=== PATIENT | male | born 1965 | race African-American/Black ===

== ENCOUNTER 2017-07-08 22:44 | Emergency (ER) | payer OTHER ==
[2017-07-08 23:36] VITALS: BMI 25.8
--- NOTE | 2017-07-09 | PDOC ---
History of Present Illness - General History Source: Patient Exam Limitations: No Limitations - History of Present Illness Initial Comments: 07/09/17 02:26 The patient is a 51 year old male with a significant past medical history of bipolar d/o, asthma, substance abuse (per EMR) who presents via EMS s/p accident at home. Patient was home when the ceiling fell on him. Patient comes in complaining of lower back pain. Denies any other injury, denies headache, neck pain, focal weakness or numbness, CP, SOB, abd pain, visual problems, N/V/D , LE edema. Denies any drug, etoh, or tobacco use today. : Maria A [phone] <Roni Greer - Last Filed: 07/09/17 05:07> <Juanita Alfaro - Last Filed: 07/09/17 07:26> - General Chief Complaint: Back Pain Stated Complaint: HEAD & BACK PAIN/INJURY Time Seen by Provider: 07/08/17 23:47 Past History <Roni Greer - Last Filed: 07/09/17 05:07> - Suicide/Smoking/Psychosocial Hx Smoking History: Unknown if ever smoked Have you smoked in the past 12 months: No Information on smoking cessation initiated: No Hx Alcohol Use: No Drug/Substance Use Hx: No <Juanita Alfaro - Last Filed: 07/09/17 07:26> - Past Medical History Allergies/Adverse Reactions: Allergies Allergy/AdvReac Type Severity Reaction Status Date / Time No Known Allergies Allergy Verified 07/08/17 23:50 Home Medications: Ambulatory Orders Celexa - 25 mg PO DAILY 07/08/17 Quetiapine Fumarate [Seroquel -] 200 mg PO BID 07/08/17 Zolpidem Tartrate [Ambien] 5 mg PO PRN 07/08/17 Review of Systems - Review of Systems Able to Perform ROS?: Yes Comments:: 07/09/17 05:07 GENERAL/CONSTITUTIONAL: No fever or chills. No weakness. HEAD, EYES, EARS, NOSE AND THROAT: No change in vision. No ear pain or discharge. No sore throat. CARDIOVASCULAR: No chest pain or shortness of breath. RESPIRATORY: No cough, wheezing, or hemoptysis. GASTROINTESTINAL: No nausea, vomiting, diarrhea or constipation. GENITOURINARY: No dysuria, frequency, or change in urination. MUSCULOSKELETAL: + lower back pain. No joint or muscle swelling or pain. No neck pain. SKIN: No rash NEUROLOGIC: No headache, vertigo, loss of consciousness, or change in strength/ sensation. ENDOCRINE: No increased thirst. No abnormal weight change. HEMATOLOGIC/LYMPHATIC: No anemia, easy bleeding, or history of blood clots. ALLERGIC/IMMUNOLOGIC: No hives or skin allergy. <Roni Greer - Last Filed: 07/09/17 05:07> *Physical Exam - Vital Signs Last Vital Signs Temp Pulse Resp BP Pulse Ox 78 12 123/85 96 07/08/17 23:34 07/08/17 23:34 07/08/17 23:34 07/08/17 23:34 - Physical Exam Comments: 07/09/17 05:08 GENERAL: Lethargic but arousable, appears intoxicated. Oriented HEAD: No signs of trauma EYES: pupils pinpoint, symmetric, EOMI, sclera anicteric, conjunctiva clear. ENT: Auricles normal inspection, hearing grossly normal, nares patent, oropharynx clear without exudates. Moist mucosa NECK: c-collar in place LUNGS: Breath sounds equal, clear to auscultation bilaterally. No wheezes, and no crackles. RR12 HEART: Regular rate and rhythm, normal S1 and S2, no murmurs, rubs or gallops ABDOMEN: Soft, nontender, normoactive bowel sounds. No guarding, no rebound. No masses EXTREMITIES: Normal range of motion, no edema. No clubbing or cyanosis. No cords, erythema, or tenderness. 2+ peripheral pulses NEUROLOGICAL: Cranial nerves II through XII grossly intact. Normal speech, gait deferred BACK: No midline spinal tenderness in thoracic/lumbar region SKIN: Warm, Dry, normal turgor, no rashes or lesions noted. <Roni Greer - Last Filed: 07/09/17 05:07> - Vital Signs Last Vital Signs Temp Pulse Resp BP Pulse Ox 78 12 123/85 96 07/08/17 23:34 07/08/17 23:34 07/08/17 23:34 07/08/17 23:34 <Juanita Alfaro - Last Filed: 07/09/17 07:26> Heart Score/ECG Review #1 07/09/17 07:25 Twelve-lead EKG was performed and reviewed by me. Normal sinus rhythm, rate of 60. Normal axis and intervals. No ST elevations. No T-wave inversions. <Juanita Alfaro - Last Filed: 07/09/17 07:26> ED Treatment Course - LABORATORY CBC & Chemistry Diagram: 07/09/17 01:11 07/09/17 01:11 - ADDITIONAL ORDERS Additional order review: 07/09/17 01:11 RBC 4.38 MCV 96.0 MCHC 33.2 RDW 13.8 MPV 7.2 L Neutrophils % 44.2 Lymphocytes % 39.1 Monocytes % 9.7 Eosinophils % 5.9 H Basophils % 1.1 - RADIOLOGY Radiology Studies Ordered: 07/09/17 01:52 EXAM: CT LUMBAR SPINE WITHOUT CONTRAST No acute fracture or malalignment. Minimal spondylosis. Small posterior disc bulges contributing to minimal canal stenosis L3-L4 and L4-L5. No substantial neural foraminal stenosis EXAM: CT CERVICAL SPINE WITHOUT CONTRAST No acute fracture or malalignment. Exam slightly limited by artifact. Multilevel spondylosis. Reversal of cervical lordosis, possibly due to positioning or muscle spasm. EXAM: CT HEAD without contrast HISTORY:Trauma COMPARISON: None. FINDINGS:The ventricular system is midline and nondilated. The sulcal pattern is normal for the patient's age. There is no bleed, mass, extra-axial fluid collection or mass effect. No skull fracture or skull lesion is identified. The visualized paranasal sinuses and mastoid air cells are clear. IMPRESSION: No acute pathology. - Medications Given in the ED: ED Medications Discontinued Medications Generic Name Dose Route Start Last Admin Trade Name Freq PRN Reason Stop Dose Admin Sodium Chloride 1,000 ml 07/09/17 00:15 07/09/17 01:19 Normal Saline - IV 07/09/17 00:16 1,000 ml ONCE ONE Administration <Roni Greer - Last Filed: 07/09/17 05:07> - LABORATORY CBC & Chemistry Diagram: 07/09/17 01:11 07/09/17 01:11 <Juanita Alfaro - Last Filed: 07/09/17 07:26> Medical Decision Making - Medical Decision Making 07/09/17 00:37 51-year-old male with a history of heroin abuse, asthma presents with back pain after the ceiling in his home collapsed on him. On arrival to the emergency department the patient appears intoxicated with pinpoint pupils. Although he denies any illicit drug use, this is likely consistent with heroin use. Will do a trauma workup and observe the patient overnight. -labs -etoh level -cth/c-spine/lumbar spine -utox -cxr/pelvix xr -reassess 07/09/17 06:[address] head, C-spine, and lumbar spine with no acute pathology. Chest and pelvis x-ray negative on my read. Patient did not give any urine and thus UA and U tox are pending. On reevaluation this morning the patient is awake alert and oriented 3. He is ambulating in the ED with a steady gait. He is clinically sober. He denies any pain or any other complaints at the moment. He denies any drug, alcohol use last night. He requests to go home and he asked me to call his and notify her. I have spoken with his Maria A. I discussed the physical exam findings, ancillary test results and final diagnoses with the patient. I answered all of the patient's questions. The patient was satisfied with the care received and felt comfortable with the discharge plan and treatment plan. The patient will call their primary care physician within 24 hours to arrange follow-up and will return to the Emergency Department with any new, persistent or worsening symptoms. <Juanita Alfaro - Last Filed: 07/09/17 07:26> *DC/Admit/Observation/Transfer - Attestations Scribe Attestion: 07/09/17 01:54 Documentation prepared by Roni Greer, acting as certified medical coder for Juanita Alfaro MD, . <Roni Greer - Last Filed: 07/09/17 05:07> - Discharge Dispostion Admit: No - Attestations Physician Attestion: 07/09/17 06:44 I, Dr. Juanita Alfaro MD, attest that this document has been prepared under my direction and personally reviewed by me in its entirety. I further attest, that it accurately reflects all work, treatment, procedures and medical decision -making performed by me. <Juanita Alfaro - Last Filed: 07/09/17 07:26> Diagnosis at time of Disposition: Back pain - Discharge Dispostion Disposition: HOME Condition at time of disposition: Stable - Referrals Referrals: STAFF,NOT ON [Primary Care Provider] - - Patient Instructions Additional Instructions: Please see your primary care doctor in 1-2 days. Return to the emergency department immediately for any new or concerning symptoms or if your symptoms get worse. Thank you for coming to the Emergency Department today for your care. It was a pleasure to see you today. Please note that your evaluation is INCOMPLETE until you follow-up with your doctor.
[2017-07-09] MEDS ORDERED: SODIUM CHLORIDE 0.9% 500 ML INFUS.BAG IV ONE (00:15)
[2017-07-09 01:25] LABS: BASOPHIL 1.1 % (0-2.0); EOSINOPHIL 5.9 % (0-4.5); MCH 31.9 pg (25.7-33.7); MCHC 33.2 g/dl (32.0-35.9); MEAN PLT VOLUME 7.2 fl (7.5-11.1); NEUTROPHILS 44.2 % (42.8-82.8); PLATELET COUNT 289 K/MM3 (134-434); RDW 13.8 % (11.9-15.9); WHITE BLOOD COUNT 7.5 K/mm3 (4.0-10.0)
[2017-07-09 01:53] LABS: ALCOHOL < 5.0 mg/dl (0-5)
[2017-07-09 01:54] LABS: ALBUMIN 3.7 g/dl (3.4-5.0); ALK PHOS 63 U/L (45-117); ANION GAP 7 (8-16); BILIRUBIN,TOTAL 0.3 mg/dL (0.2-1.0); CALCIUM 9.1 mg/dL (8.5-10.1); CO2 32 mmol/L (21-32); CREATININE 0.9 mg/dL (0.7-1.3); GLUCOSE,RANDOM 84 mg/dL (74-106); MAGNESIUM 2.3 mg/dL (1.8-2.4); SGOT/AST 10 U/L (15-37); SGPT/ALT 18 U/L (12-78); TOT PROT 6.3 g/dl (6.4-8.2)
[2017-07-09 02:00] LABS: SALICYLATE < 4.0 mg/dl (0.0-30.0)
[2017-07-09 06:28] VITALS: BP 137/90; PULSE 67; TEMP 97.4
--- NOTE | 2017-07-09 10:56 | EKG ---
Test Reason : Blood Pressure : / mmHG Vent. Rate : 060 BPM Atrial Rate : 060 BPM P-R Int : 168 ms QRS Dur : 096 ms QT Int : 400 ms P-R-T Axes : 058 079 029 degrees QTc Int : 400 ms NORMAL SINUS RHYTHM NORMAL ECG NO PREVIOUS ECGS AVAILABLE Confirmed by FLAVIO BAKER MD ([id number]) on 07/09/2017 10:56:23 AM Referred By: Confirmed By:FLAVIO BAKER MD
== END 2017-07-09 06:55 | disposition home or self-care (01) ==
LOC: JER 22:44
DX: M54.5 Low back pain (principal); F31.9 Bipolar disorder, unspecified; J45.909 Unspecified asthma, uncomplicated; W20.8XXA Other cause of strike by thrown, projected or falling object, initial encounter; Y93.89 Activity, other specified; Y92.038 Other place in apartment as the place of occurrence of the external cause
CPT/HCPCS: 36415; 70450-TC; 71020-TC; 72125-TC; 72131-TC; 72170-TC; 80053; 80307; 83690; 83735; 85025; 93005; 93010; 99282-25